=== PATIENT | male | born 1945 | race American Indian/Alaskan Native ===

== ENCOUNTER → 2018-02-20 | Outpatient (CLI) | payer MEDICARE, OTHER ==
--- NOTE | 2018-02-20 13:27 | XRay Report ---
XRAY BILATERAL HIPS AND AP PELVIS THREE VIEWS: 02/20/18 CLINICAL: Bilateral hip pain FINDINGS: Right: No fracture or dislocation. Moderate osteoarthritis with superolateral joint space narrowing, acetabular eburnation and subchondral acetabular geodes. A small superolateral osteophytes. Normal soft tissues. Left: No fracture or dislocation. Moderate osteoarthritis with superolateral joint space narrowing, acetabular eburnation and subchondral acetabular geodes.Normal soft tissues. The pelvic bones are intact.Normal SI joints. IMPRESSION: Bilateral osteoarthritis, worse on the right than the left.
== END | disposition home or self-care (01) ==
LOC: SPVIMAG 09:08
DX: M16.0 Bilateral primary osteoarthritis of hip (principal)
CPT/HCPCS: 73521